=== PATIENT | female | born 1995 | race Two or more races ===

== ENCOUNTER → 2024-12-16 | Outpatient (CLI) | payer MEDICAID, SELFPAY ==
--- NOTE | 2024-12-16 15:00 | XR_ITS ---
Examination: Breast ultrasound complete, bilateral Date and time of exam: December 16, 2024 1510 hours INDICATIONS: Bilateral breast tenderness several months, family history breast cancer Technique: Real-time grayscale ultrasonographic imaging bilateral breasts, including all 4 quadrants as well as nipple retroareolar and axillary regions. Findings: Sonographic images right breast 2:00 oval mass lobular margins 8 x 7 mm 6:00 oval mass lobular margins 5 x 6 mm 9:00 oval mass partially indistinct margins 10 x 13 mm 10:00 oval mass partially indistinct margins 16 x 14 mm Retroareolar oval mass lobular margins 19 x 19 mm Sonographic images left breast 2:00 oval mass lobular margins 8 x 10 mm 6:00 oval mass lobular margins 9 x 8 mm 7:00 oval mass with calcifications 13 x 15 mm Retroareolar oval mass with calcifications 15 x 16 mm IMPRESSION: BI-RADS Category 4: Suspicious for malignancy Suspicious masses right breast 9:00 10:00 position, biopsy both nodules is needed to exclude breast carcinoma, these nodules are amenable to ultrasound-guided breast biopsy for diagnosis Bilateral six-month breast sonography follow-up is also strongly recommended
== END | disposition home or self-care (01) ==
PROVIDERS: PCP Nurse Practitioner Family; Referring Provider Obstetrics & Gynecology; Visit Provider Obstetrics & Gynecology
DX: N63.15 Unspecified lump in the right breast, overlapping quadrants (principal); N63.11 Unspecified lump in the right breast, upper outer quadrant
CPT/HCPCS: 76641